=== PATIENT | male | born 1945 | race Caucasian/White ===

== ENCOUNTER 2018-03-30 10:41 | Emergency (ER) | payer OTHER, MEDICARE, BC ==
[2018-03-30 11:08] LABS: BASO % 0.2 % (0.0-1.0); EOS % 0.2 % (0.0-3.0); HEMATOCRIT 42.1 % (42.0-52.0); HEMOGLOBIN 14.7 g/dl (13.5-17.5); IMMATURE GRANULOCYTE % 0.4 % (0-3.0); LYMPH # 1.6 10^3/uL (1.5-4.5); LYMPH % 30.8 % (24.0-44.0); MEAN CORPUSCULAR HEMOGLOBIN 30.2 pg (27.0-33.0); MEAN CORPUSCULAR HGB CONC 34.9 g/dl (32.0-36.5); MEAN CORPUSCULAR VOLUME 86.6 fl (80.0-96.0); MONO # 0.8 10^3/uL (0.0-0.8); MONO % 15.7 % (0.0-5.0); NEUTROPHILS # 2.8 10^3/uL (1.8-7.7); NEUTROPHILS % 52.7 % (36.0-66.0); PLATELET COUNT, AUTOMATED 163 10^3/uL (150-450); RED BLOOD COUNT 4.86 10^6/uL (4.30-6.10); WHITE BLOOD COUNT 5.3 10^3/uL (4.0-10.0)
[2018-03-30 11:33] LABS: LACTIC ACID SEPSIS PROTOCOL 1.5 MMOL/L (0.4-2.0)
[2018-03-30 11:34] LABS: ANION GAP 6 MEQ/L (8-16); BLOOD UREA NITROGEN 22 MG/DL (7-18); CALCIUM LEVEL 8.8 MG/DL (8.8-10.2); CARBON DIOXIDE LEVEL 28 MEQ/L (21-32); CHLORIDE LEVEL 105 MEQ/L (98-107); CK-MB VALUE MASS < 1.0 NG/ML (<3.6); CPK CREATINE PHOSPHOKINASE 49 U/L (39-308); CREATININE FOR GFR 1.69 MG/DL (0.70-1.30); GLOMERULAR FILTRATION RATE 42.8 (>42); GLUCOSE, FASTING 129 MG/DL (70-100); MB/CK RELATIVE INDEX 2.04 (< OR =4); POTASSIUM SERUM 3.7 MEQ/L (3.5-5.1); SODIUM LEVEL 139 MEQ/L (136-145); TROPONIN I < 0.02 NG/ML (< 0.10)
[2018-03-31 10:50] LABS: BEDSIDE GLUCOSE 118 MG/DL (83-110)
== END 2018-03-30 13:12 | disposition home or self-care (01) ==
LOC: M ED 10:41
DX: R55 Syncope and collapse (principal); J32.9 Chronic sinusitis, unspecified; R00.0 Tachycardia, unspecified; I10 Essential (primary) hypertension; K22.70 Barrett's esophagus without dysplasia; R00.1 Bradycardia, unspecified; Z87.891 Personal history of nicotine dependence; Z88.5 Allergy status to narcotic agent; Z79.899 Other long term (current) drug therapy
CPT/HCPCS: 71045

== ENCOUNTER 2018-05-20 06:39 | Day surgery (SDC) | payer MEDICARE, BC, OTHER ==
[~2018-05-20 06:39] MED LIST: ACETAMINOPHEN 325 MG TAB PO
[2018-05-20] MEDS ORDERED: PHENYLEPHRINE HCL 10 % OPHTH. SOL 5ML OD (07:00)
[2018-05-20] MEDS ORDERED: PROPARACAINE 0.5% OPHTH SOL 15ML OD (07:01)
[2018-05-20] MEDS ORDERED: MIDAZOLAM INJ 2 MG/2 ML VIAL (J2250) As Ordered (07:08)
[2018-05-20] MEDS ORDERED: fentaNYL 100 MCG/2 ML INJECTION (J3010) As Ordered (07:08)
[2018-05-20] MEDS: OFLOXACIN 0.3 % (OCUFLOX) OPTH SOL 5ML OD (07:21)
[2018-05-20] MEDS: CYCLOPENTOLATE 2% OPHTH SOLN 2ML BTL OD (07:21)
[2018-05-20] MEDS: TROPICAMIDE 1% OPHTH SOLN 2ML OD (07:21)
[2018-05-20] MEDS: PHENYLEPHRINE 2.5% OPHTH SOL 2ML OD (07:21)
[2018-05-20] MEDS: LIDOCAINE 3.5 % 1ML OPHTH TOPICAL GEL OU (07:21)
[2018-05-20] MEDS: HEALON DUET (HEALON 10MG/ML 0.55ML & HEALON ENDOCOAT 30MG/ML 0.85ML) As Ordered (08:27)
[2018-05-20] MEDS: LIDOCAINE 2% W/EPIN INJ 20ML **PRES FREE XX (08:27)
[2018-05-20] MEDS: LIDOCAINE 1% SDV 5 ML VIAL As Ordered (08:27)
[2018-05-20] MEDS: POVIDONE-IODINE 5% OPHTH PREP SOL 30ML As Ordered (08:27)
[2018-05-20] MEDS: CEFUROXIME 1MG/0.1ML INTRACAMERAL INJ As Ordered (08:27)
[2018-05-20] MEDS: BSS with VANC/TOB/EPI for EYE CASES IR (08:27)
[2018-05-20] MEDS: AcetaZOLAMIDE 500 MG ER CAP PO (09:15)
[2018-05-20] MEDS: KETOROLAC 0.5% OPHTH SOLN OD (09:15)
[2018-05-20] MEDS ORDERED: TRIMETHOBENZAMIDE 300 MG CAP PO (09:15)
[2018-05-20] MEDS ORDERED: HEALON DUET (HEALON 10MG/ML 0.55ML & HEALON ENDOCOAT 30MG/ML 0.85ML) As Ordered (12:07)
== END 2018-05-20 09:33 | disposition home or self-care (01) ==
LOC: M SDC 06:39
DX: H25.9 Unspecified age-related cataract (principal); H40.811 Glaucoma with increased episcleral venous pressure, right eye; I10 Essential (primary) hypertension; Z79.899 Other long term (current) drug therapy
CPT/HCPCS: 66984

== ENCOUNTER 2018-05-27 06:11 | Day surgery (SDC) | payer MEDICARE, BC, OTHER ==
[~2018-05-27 06:11] MED LIST changes: +SLF 3 ML SYR IV
[2018-05-27] MEDS: CYCLOPENTOLATE 2% OPHTH SOLN 2ML BTL OS (06:30)
[2018-05-27] MEDS: TROPICAMIDE 1% OPHTH SOLN 2ML OS (06:30)
[2018-05-27] MEDS: LIDOCAINE 3.5 % 1ML OPHTH TOPICAL GEL OU (06:30)
[2018-05-27] MEDS: PHENYLEPHRINE 2.5% OPHTH SOL 2ML OS (06:30)
[2018-05-27] MEDS: OFLOXACIN 0.3 % (OCUFLOX) OPTH SOL 5ML OS (06:30)
[2018-05-27] MEDS ORDERED: PHENYLEPHRINE HCL 10 % OPHTH. SOL 5ML OS (07:00)
[2018-05-27] MEDS ORDERED: PROPARACAINE 0.5% OPHTH SOL 15ML OS (07:01)
[2018-05-27] MEDS: POVIDONE-IODINE 5% OPHTH PREP SOL 30ML As Ordered (08:07)
[2018-05-27] MEDS: HEALON DUET (HEALON 10MG/ML 0.55ML & HEALON ENDOCOAT 30MG/ML 0.85ML) As Ordered ×3 (08:08→08:33)
[2018-05-27] MEDS: TRIAMCINOLONE PRES FR 40 MG/ML 1ML(TRIESENCE)(OR EYE ONLY)(J3300 PER 1MG) As Ordered (08:08)
[2018-05-27] MEDS: CEFUROXIME 1MG/0.1ML INTRACAMERAL INJ As Ordered (08:08)
[2018-05-27] MEDS ORDERED: fentaNYL 100 MCG/2 ML INJECTION (J3010) As Ordered (08:10)
[2018-05-27] MEDS ORDERED: MIDAZOLAM INJ 2 MG/2 ML VIAL (J2250) As Ordered (08:10)
[2018-05-27] MEDS: BSS with VANC/TOB/EPI for EYE CASES IR (08:10)
[2018-05-27] MEDS: LIDOCAINE 1% SDV 5 ML VIAL As Ordered (08:10)
[2018-05-27] MEDS: MOXIFLOXACIN IN BSS 0.25MG/0.25ML INTRACAMERAL INJ (OR EYE ONLY)(J2280) As Ordered (08:32)
[2018-05-27 08:43] LABS: BEDSIDE GLUCOSE 105 MG/DL (83-110)
[2018-05-27] MEDS ORDERED: TRIMETHOBENZAMIDE 300 MG CAP PO (09:00)
[2018-05-27] MEDS: AcetaZOLAMIDE 500 MG ER CAP PO (09:21)
[2018-05-27] MEDS: KETOROLAC 0.5% OPHTH SOLN OS (09:21)
[2018-05-27] MEDS ORDERED: LR 1,000 ML IV (09:45)
[2018-05-27] MEDS ORDERED: LR 250 ML IV (09:45)
[2018-05-27] MEDS ORDERED: ONDANSETRON 4MG/2ML VIAL (J2405) IV (09:45)
== END 2018-05-27 09:58 | disposition home or self-care (01) ==
LOC: M SDC 06:11
DX: H25.9 Unspecified age-related cataract (principal); H40.812 Glaucoma with increased episcleral venous pressure, left eye; I10 Essential (primary) hypertension; Z79.899 Other long term (current) drug therapy
CPT/HCPCS: 66984

== ENCOUNTER → 2023-08-01 | Outpatient (CLI) | payer BC, MEDICARE, OTHER ==
[~2023-08-01] MED LIST changes: -ACETAMINOPHEN 325 MG TAB PO; +AZIT-12 PO; +DICY20TA20 PO; +GASTROGRAFIN SOLUTION 30ML As Ordered ONE; +HYDR12.55 PO; +ISOVUE-370 76% 100ML VIAL As Ordered ONE; +LISI40TA4 PO; +LOPE1LIQ25 PO; +MELO15TA28 PO; +MULT1TAB10 PO; +PRED10TA2 PO; +PROBCAP4 PO; +RANI-397 PO; -SLF 3 ML SYR IV
== END ==
LOC: M RAD 13:04
PROVIDERS: ATTEND Physician Assistant Medical
DX: R93.3 Abnormal findings on diagnostic imaging of other parts of digestive tract (principal); K57.50 Diverticulosis of both small and large intestine without perforation or abscess without bleeding; Z96.0 Presence of urogenital implants; M47.9 Spondylosis, unspecified
CPT/HCPCS: 74178; Q9963; Q9967